=== PATIENT | female | born 1950 | race Caucasian/White ===

== ENCOUNTER 2021-01-10 22:33 | Emergency (ER) | payer MEDICARE ==
[~2021-01-10] VITALS: Ht 157.5 cm; Wt 86.4 kg
[~2021-01-10 22:33] MED LIST: BACTRIM DS TAB1 EAC1 PO; CLEOCIN HCL300 MG PO; FUROSEMIDE20 MG PO; LEVOFLOXACIN500 MG PO
[2021-01-10 22:35] VITALS: BP 171/81; Ht 157.5 cm; Wt 86.4 kg
[2021-01-10] MEDS ORDERED: CEPHALEXIN500 M1 PO (22:38)
[2021-01-10 23:13] LABS: BASOPHILS 0.5 % (0-2); EOSINOPHILS 1.9 % (0-7); HEMATOCRIT 37.5 % (36.0-48.0); LYMPHOCYTE ABS# 1.78 10x3/uL (1.18-3.74); LYMPHOCYTES 28.4 % (15-50); MCH 27.3 pg (26.0-34.0); MCV 85.4 fL (80.0-100.0); MEAN PLATELET VOLUME 11.4 fL (7.4-10.4); MONOCYTES 10.4 % (2-11); NEUTROPHIL ABS# 3.69 10x3/uL (1.56-6.13); NEUTROPHILS 58.8 % (40-80); PLATELET COUNT 214 10x3/uL (130-400); RBC 4.39 10x6/uL (4.00-5.40); RDW 16.6 % (11.5-14.5); WBC 6.3 10x3/uL (4.8-10.8)
[2021-01-10 23:32] LABS: CALC OSMOLALITY 281 mosm/kg (275-300); CALCIUM 8.5 mg/dL (8.5-10.1); CARBON DIOXIDE 28.5 mmol/L (21.0-32.0); CHLORIDE - SERUM 104 mmol/L (98-107); CREATININE - SERUM 0.9 mg/dL (0.6-1.3); GLUCOSE 122 mg/dL (74-106); POTASSIUM - SERUM 4.1 mmol/L (3.5-5.1); SODIUM 139 mmol/L (136-145); UREA NITROGEN 22 mg/dL (7-18); eGFR NON AFRICAN AMERICAN 65 mL/min (90-120)
[2021-01-10 23:55] LABS: ALBUMIN 3.5 g/dL (3.4-5.0); ALKALINE PHOSPHATASE 89 U/L (30-120); ALT (SGPT) 18 U/L (10-68); BILIRUBIN - TOTAL 0.21 mg/dL (0.2-1.3); C-REACTIVE PROTEIN 0.8 mg/dL (0.0-0.9); CKMB 1.8 U/L (0.0-3.6); CREATINE KINASE 89 UL (21-215); PRO BNP 99 pg/mL (0-125); PROTEIN - SERUM 7.2 g/dL (6.4-8.2); TROPONIN-I < 0.017 ng/mL (0.000-0.060)
[2021-01-11 00:22] LABS: BILIRUBIN NEGATIVE (NEGATIVE); KETONE NEGATIVE (NEGATIVE); NITRITE NEGATIVE (NEGATIVE); UROBILINOGEN NORMAL mg/dL (< 2)
[2021-01-11 00:23] LABS: WHITE CELLS - URINE 0-5 HPF (0-4)
[2021-01-11 00:24] LABS: BACTERIA FEW HPF (NONE SEEN); SQUAMOUS EPITHELIAL 0-5 HPF (0-4)
--- NOTE | 2021-01-11 01:12 | NUR ---
DR. PATEL NOTIFIED AND REVIEWED PT'S BEHAVIORS AND ASSESSMENT RESULTS. PT IS A LOW RISK PER DR. PATEL. DR. PATEL STATED TO GIVE RESOURCES TO PT AT TIME OF DISCHARGE. NO FURTHER ORDERS AT THIS TIME. RESOURCES REVIEWED WITH PT AND SHE VERBALIZED UNDERSTANDING.
== END 2021-01-11 02:10 | disposition home or self-care (01) ==
LOC: D.ER 22:33
PROVIDERS: Family Medicine
DX: L53.9 Erythematous condition, unspecified (principal); Z76.5 Malingerer [conscious simulation]; J45.909 Unspecified asthma, uncomplicated; M79.661 Pain in right lower leg

== ENCOUNTER 2021-01-21 01:07 | Observation (INO) | payer MEDICARE, MEDICAID ==
[~2021-01-21] VITALS: Ht 157.5 cm; Wt 92.5 kg
[~2021-01-21 01:07] MED LIST changes: +CEPHALEXIN500 M1 PO
--- NOTE | 2021-01-21 01:46 | NUR ---
PT REFUSED MEDICATION FOR PAIN AND STATES I WANT TO BE ADMITTED. PT STATES "I AM NOT LEAVING UNTIL MY LEG IS FIXED."
[2021-01-21 03:02] LABS: ANION GAP 12.7 mmol/L (8-16); CARBON DIOXIDE 27.7 mmol/L (21.0-32.0); CREATININE - SERUM 0.9 mg/dL (0.6-1.3); POTASSIUM - SERUM 5.4 mmol/L (3.5-5.1)
[2021-01-21 03:03] LABS: INR 1.02 (0.85-1.17); PROTIME 12.4 SECONDS (11.6-15.0)
[2021-01-21 03:04] LABS: BASOPHILS 0.6 % (0-2); EOSINOPHILS 1.9 % (0-7); HEMATOCRIT 37.8 % (36.0-48.0); HEMOGLOBIN 12.3 g/dL (12-16); IMMATURE GRANULOCYTES 0.1 % (0-5); LYMPHOCYTE ABS# 1.56 10x3/uL (1.18-3.74); LYMPHOCYTES 22.5 % (15-50); MCH 27.6 pg (26.0-34.0); MCHC 32.5 g/dL (31.0-37.0); MCV 84.9 fL (80.0-100.0); MEAN PLATELET VOLUME 11.4 fL (7.4-10.4); MONOCYTES 9.4 % (2-11); NEUTROPHIL ABS# 4.55 10x3/uL (1.56-6.13); NEUTROPHILS 65.5 % (40-80); PLATELET COUNT 251 10x3/uL (130-400); RBC 4.45 10x6/uL (4.00-5.40); WBC 6.9 10x3/uL (4.8-10.8)
[2021-01-21 03:08] LABS: ALBUMIN 3.7 g/dL (3.4-5.0); BILIRUBIN - TOTAL 0.29 mg/dL (0.2-1.3); PROTEIN - SERUM 7.5 g/dL (6.4-8.2)
[2021-01-21 04:12] LABS: BILIRUBIN NEGATIVE (NEGATIVE); KETONE NEGATIVE (NEGATIVE); NITRITE NEGATIVE (NEGATIVE); UROBILINOGEN NORMAL mg/dL (< 2)
--- NOTE | 2021-01-21 05:14 | NUR ---
PT ARRIVED VIA STRETCHER ESCORTED BY ER NURSE. TRANSFERRED TO BED AND PLACED GOWN ON PT AND PLACED URINE SOAKED CLOTHING IN PLASTIC BAG AND PLACED IN HER CLOSET. PT DEMANDING WITH NON STOP REQUESTS FROM THE TIME SHE ENTERED ROOM. CALL LIGHT WITHIN REACH. SIDE RAILS UP X2 AND BED ALARM IN USE FOR SAFETY.
[2021-01-21 05:25] VITALS: BP 118/52; BMI 37.4
--- NOTE | 2021-01-21 05:45 | NUR ---
ADMISSION ASSESSMENT COMPLETE.
--- NOTE | 2021-01-21 06:23 | NUR ---
PLACED ORDER FOR BREAKFAST REQUESTS FROM PATIENT.
[2021-01-21 10:56] VITALS: BP 114/71
[2021-01-21 14:36] VITALS: BP 107/58
[2021-01-21 17:54] LABS: CALCIUM 8.4 mg/dL (8.5-10.1); CARBON DIOXIDE 25.7 mmol/L (21.0-32.0); MAGNESIUM - SERUM 2.1 mg/dL (1.8-2.4); POTASSIUM - SERUM 4.7 mmol/L (3.5-5.1)
[2021-01-22 06:02] LABS: BASOPHILS 0.6 % (0-2); EOSINOPHILS 2.4 % (0-7); HEMATOCRIT 35.4 % (36.0-48.0); HEMOGLOBIN 11.5 g/dL (12-16); IMMATURE GRANULOCYTES 0.2 % (0-5); LYMPHOCYTE ABS# 1.65 10x3/uL (1.18-3.74); LYMPHOCYTES 33.6 % (15-50); MCH 27.4 pg (26.0-34.0); MCHC 32.5 g/dL (31.0-37.0); MCV 84.5 fL (80.0-100.0); MEAN PLATELET VOLUME 11.9 fL (7.4-10.4); NEUTROPHIL ABS# 2.51 10x3/uL (1.56-6.13); NEUTROPHILS 51.2 % (40-80); PLATELET COUNT 250 10x3/uL (130-400); RBC 4.19 10x6/uL (4.00-5.40); RDW 17.3 % (11.5-14.5)
[2021-01-22 06:06] LABS: WBC 4.9 10x3/uL (4.8-10.8)
[2021-01-22 06:24] LABS: ANION GAP 11.8 mmol/L (8-16); CALCIUM 8.7 mg/dL (8.5-10.1); CARBON DIOXIDE 28.2 mmol/L (21.0-32.0); CREATININE - SERUM 0.9 mg/dL (0.6-1.3); MAGNESIUM - SERUM 2.1 mg/dL (1.8-2.4)
[2021-01-22 09:07] VITALS: BP 109/58
--- NOTE | 2021-01-22 12:37 | NUR ---
PT THRU HER PLASTIC JHA IN THE TRASH AND IS SITTING WITH HER ARMS CROSSED AND STATES THAT SHE WILL NOT EAT UNTIL SHE GETS REAL SILVERWARE. EXPLANED TO HER THAT EVERYONE IS GETTING PLASTIC TODAY. PT CONTINUES TO DEMAND SILVERWARE THAT IS NOT PLASTIC EVEN AFTER I PROVIDED PLASTIC JHA FOR HER.
[2021-01-22 13:29] VITALS: Ht 157.5 cm; Wt 92.5 kg
[2021-01-22 14:20] VITALS: BP 110/47
--- NOTE | 2021-01-22 14:39 | NUR ---
PT CO OF THE [employer] TECH TOUCHING HER LEG. PT IS YELLING OUT. EXPLANED THAT THE DR ORDERED THE US. WILL CONTINUE TO ATTEMPT TO PERFORM THE US BLE.
--- NOTE | 2021-01-22 15:07 | NUR ---
PT VERY DIFFICULT, MOVING AND YELLING ENTIRE TIME. FLATLY REFUSED TO HAVE ANKLE BLOOD PRESSURES FOR JUAN ALBERTO. EXPLAINED NEED TO PT. SHE WOULD NOT CONSIDER IT. THIS WAS WITNESSED BY OTOLARYNGOLOGY SURGEON WHO WAS TRYING TO HELP LULI, LAURAMS / PT LET ME GET MOST OF BVDS WITH A LOT OF COMPLAINING / MOVING/
--- NOTE | 2021-01-22 15:09 | NUR ---
PT REFUSED JUAN ALBERTO/ WAS WITNESSED BY EQUIPMENT ASSOCIATE / RUFUSED BLOOD PRESSURES OF ANKLES FOR JUAN ALBERTO / FINALLY LET ME DO MOST OF B VDS BUT WITH LOTS OF MOVEMENT AND YELLING, ETC. NURSE WAS INFORMED CNX JUAN ALBERTO / POOJA HYMAN
[2021-01-22 17:00] VITALS: BP 110/53
[2021-01-22 20:00] VITALS: BP 126/66
--- NOTE | 2021-01-22 23:05 | NUR ---
Assumed care of pt after report/rounds. Pt denies pain/discomfort. Pt refusing to put SCD's back on and also refusing I.S. even after teaching. Pt is in bed watching TV. Pt very demanding and on light frequently for multiple things. Did settle patient and assist with comfort. In bed resting at this time.
[2021-01-23] VITALS: BP 136/72
[2021-01-23 04:00] VITALS: BP 136/67
[2021-01-23 07:33] LABS: BASOPHILS 0.4 % (0-2); EOSINOPHILS 2.3 % (0-7); HEMATOCRIT 36.3 % (36.0-48.0); HEMOGLOBIN 11.8 g/dL (12-16); IMMATURE GRANULOCYTES 0.2 % (0-5); LYMPHOCYTE ABS# 1.35 10x3/uL (1.18-3.74); LYMPHOCYTES 27.8 % (15-50); MCH 27.3 pg (26.0-34.0); MCHC 32.5 g/dL (31.0-37.0); MCV 83.8 fL (80.0-100.0); MEAN PLATELET VOLUME 11.9 fL (7.4-10.4); MONOCYTES 10.7 % (2-11); NEUTROPHIL ABS# 2.85 10x3/uL (1.56-6.13); NEUTROPHILS 58.6 % (40-80); PLATELET COUNT 251 10x3/uL (130-400); RBC 4.33 10x6/uL (4.00-5.40); WBC 4.9 10x3/uL (4.8-10.8)
[2021-01-23 07:34] LABS: ALBUMIN 3.4 g/dL (3.4-5.0); ANION GAP 11.7 mmol/L (8-16); BILIRUBIN - TOTAL 0.23 mg/dL (0.2-1.3); CALCIUM 8.9 mg/dL (8.5-10.1); CARBON DIOXIDE 29.1 mmol/L (21.0-32.0); CREATININE - SERUM 0.9 mg/dL (0.6-1.3); POTASSIUM - SERUM 4.8 mmol/L (3.5-5.1); PROTEIN - SERUM 7.1 g/dL (6.4-8.2)
[2021-01-23 09:03] VITALS: BP 112/60
--- NOTE | 2021-01-23 11:50 | NUR ---
SPOKE WITH ONCALL COSMETOLOGY EDUCATOR. DR ELISE IS WATCHING FOR [place] RESULTS AND WILL FOLLOW UP WITH PT ONCE DISCHARGED.
[2021-01-23 13:38] VITALS: BP 99/50
[2021-01-23] MEDS ORDERED: VIBRAMYCIN 100100 MG PO (15:01)
--- NOTE | 2021-01-23 17:02 | MORECARE ---
CASE MANAGEMENT DISCHARGE SUMMARY PATIENT: JILL HERNANDEZ UNIT: [id number] ADM DATE: 01/21/21 AGE: 71 : 49 SEX: F [facility] AUTHOR: JAYLEN,DOC PHYSICIAN: REFERRING PHYSICIAN: JOSE CRUZ SALAZAR MD DATE OF SERVICE: 01/23/21 Case Management Discharge Planning Summary DCP REVIEW SUMMARY ANTICIPATED D/C DATE: EXPECTED LOS : CASE STATUS: DCP Initiated INITIAL REVIEW: 01/21/2021 INITIAL REVIEWER: Hui Byrnes FINAL DISCHARGE DISPOSITION: : FINAL REVIEWER: FINAL REVIEW DATE: DCP [employer] Questions & Answers QUESTION: ANSWER : PATIENT: JILL HERNANDEZ ENCOUNTER: [id number] MEDICAL RECORD#: [id number] ADMISSION DATE: 01/21/2021 DISCHARGE DATE: ATTENDING MD: JOSE CRUZ MENDIOLA : AGE: 71 MARITAL STATUS: D DC PLAN ID: [id number] FACILITY: [facility] PRINTED ON: 01/23/21 17:01 CT All edits/amendments must be made on the electronic document DICTATION DATE: 01/23/211700 SENIOR PRINCIPAL PROCESS ENGINEER: DM 01/23/211700 RPT#: [id number] DC DATE: STATUS: ADM IN [facility] [address] [place] [address] END OF REPORT
--- NOTE | 2021-01-23 17:14 | MORECARE ---
CASE MANAGEMENT DISCHARGE SUMMARY PATIENT: JILL HERNANDEZ UNIT: [id number] ADM DATE: 01/21/21 AGE: 71 : 49 SEX: F ROOM/BED: D.2225 AUTHOR: JAYLEN,DOC PHYSICIAN: REFERRING PHYSICIAN: JOSE CRUZ SALAZAR MD DATE OF SERVICE: 01/23/21 Case Management Discharge Planning Summary COMMENTS ENTERED DATE: 01/23/21 17:01 CT COMMENT TYPE: Discharge Planning REVIEWER: Hui Byrnes CM met with patient at bedside after obtaining verbal consent. CM discussed availability / needs of home health, REHAB and medical equipment. PATIENT HAS WALKER. STATES NO PCP. SHE HAS NO RIDE FOR HOME, I HAVE CALLED A [facility] TO PICK HER UP AND TAKE HER HOME. PATIENT IS VERY ARGUMENTATIVE AND DIFFICULT TO TALK TO. SHE WAS INSTRUCTED ON HER DC AND FOLLOW UP APPOINTMENTS WERE MADE FOR HER. CM TO FOLLOW AND ASSIST NEEDED. DCP REVIEW SUMMARY ANTICIPATED D/C DATE: EXPECTED LOS : CASE STATUS: DCP Initiated INITIAL REVIEW: 01/21/2021 INITIAL REVIEWER: Hui Byrnes FINAL DISCHARGE DISPOSITION: : FINAL REVIEWER: FINAL REVIEW DATE: DCP [employer] Questions & Answers QUESTION: ANSWER : PATIENT: JILL HERNANDEZ ENCOUNTER: [id number] MEDICAL RECORD#: [id number] ADMISSION DATE: 01/21/2021 DISCHARGE DATE: ATTENDING MD: JOSE CRUZ MENDIOLA : AGE: 71 MARITAL STATUS: D DC PLAN ID: [id number] FACILITY: [facility] PRINTED ON: 01/23/21 17:13 CT All edits/amendments must be made on the electronic document DICTATION DATE: 01/23/211712 PERSONNEL COUNSELOR: ESTHER 01/23/211712 RPT#: [id number] DC DATE: STATUS: ADM IN [facility] [address] [place] [address] END OF REPORT
[2021-01-23 17:56] VITALS: BP 114/60
--- NOTE | 2021-01-23 18:37 | MORECARE ---
CASE MANAGEMENT DISCHARGE SUMMARY PATIENT: JILL HERNANDEZ UNIT: [id number] ADM DATE: 01/21/21 AGE: 71 : 49 SEX: F ROOM/BED: D.2225 AUTHOR: JAYLEN,DOC PHYSICIAN: REFERRING PHYSICIAN: JOSE CRUZ SALAZAR MD DATE OF SERVICE: 01/23/21 Case Management Discharge Planning Summary COMMENTS ENTERED DATE: 01/23/21 17:01 CT COMMENT TYPE: Discharge Planning REVIEWER: Hui Byrnes CM met with patient at bedside after obtaining verbal consent. CM discussed availability / needs of home health, REHAB and medical equipment. PATIENT HAS WALKER. STATES NO PCP. SHE HAS NO RIDE FOR HOME, I HAVE CALLED A [facility] TO PICK HER UP AND TAKE HER HOME. PATIENT IS VERY ARGUMENTATIVE AND DIFFICULT TO TALK TO. SHE WAS INSTRUCTED ON HER DC AND FOLLOW UP APPOINTMENTS WERE MADE FOR HER. CM TO FOLLOW AND ASSIST NEEDED. DCP REVIEW SUMMARY ANTICIPATED D/C DATE: EXPECTED LOS : CASE STATUS: DCP Initiated INITIAL REVIEW: 01/21/2021 INITIAL REVIEWER: Hui Byrnes FINAL DISCHARGE DISPOSITION: : FINAL REVIEWER: FINAL REVIEW DATE: DCP Focus Questions & Answers QUESTION: ANSWER : PATIENT: JILL HERNANDEZ ENCOUNTER: [id number] MEDICAL RECORD#: [id number] ADMISSION DATE: 01/21/2021 DISCHARGE DATE: 01/23/2021 ATTENDING MD: JOSE CRUZ MENDIOLA : AGE: 71 MARITAL STATUS: D DC PLAN ID: [id number] FACILITY: [facility] PRINTED ON: 01/23/21 18:37 CT All edits/amendments must be made on the electronic document DICTATION DATE: 01/23/211836 BIOINFORMATICS SOFTWARE ENGINEER: ESTHER 01/23/211836 RPT#: [id number] DC DATE:01/23/21 STATUS: DIS IN [place] [id number] [place] [address] END OF REPORT
== END 2021-01-23 17:27 | disposition home or self-care (01) ==
LOC: D.ER 01:07 → D.MS 04:51 → OBSVTIME 04:51 → D.MS 04:51
PROVIDERS: Family Medicine; ADMIT Emergency Medicine; ATTEND Emergency Medicine
DX: R19.09 Other intra-abdominal and pelvic swelling, mass and lump (principal); K44.9 Diaphragmatic hernia without obstruction or gangrene; J45.909 Unspecified asthma, uncomplicated; L03.116 Cellulitis of left lower limb; L03.115 Cellulitis of right lower limb; K43.9 Ventral hernia without obstruction or gangrene

== ENCOUNTER 2021-02-02 22:56 | Emergency (ER) | payer MEDICARE, MEDICAID ==
[~2021-02-02] VITALS: Ht 157.5 cm; Wt 81.8 kg
[~2021-02-02 22:56] MED LIST changes: +VIBRAMYCIN 100100 MG PO
[2021-02-02 23:14] VITALS: Ht 157.5 cm; Wt 81.8 kg
[2021-02-02] MEDS ORDERED: CLEOCIN HCL300 MG PO ×2 (23:39→23:40)
[2021-02-03 01:24] VITALS: BP 137/67
== END 2021-02-03 00:20 | disposition home or self-care (01) ==
LOC: D.ER 22:56
DX: M79.604 Pain in right leg (principal); J45.909 Unspecified asthma, uncomplicated